=== PATIENT | male | born 1980 | race Caucasian/White ===

== ENCOUNTER → 2020-12-01 02:35 | Outpatient (CLI) | payer BC, SELFPAY ==
[2020-12-01 18:16] LABS: SARS-CoV-2 RNA PCR Positive
== END ==
PROVIDERS: PCP Family Medicine; Visit Provider Physician Assistant
DX: U07.1 COVID-19 (principal)
CPT/HCPCS: C9803; U0003; U0005

== ENCOUNTER 2020-12-29 08:57 | Outpatient (CLI) | payer BC, SELFPAY ==
--- NOTE | ~2020-12-29 | MR_ITS ---
EXAMINATION: MR brain/brain stem wo con EXAM DATE: 12/29/2020 09:34 INDICATION: G89.29 - Other chronic pain chronic pain . Generalized headaches, dizziness, nausea. TECHNIQUE: Magnetic resonance imaging (MRI) of the brain/brain stem obtained without contrast. Sagitt al T1, axial diffusion, gradient echo (T2*), T1, T2, FLAIR sequences obtained. There is no prior st udy for comparison. FINDINGS: There is moderate right sphenoid and mild right maxillary sinus mucoperiosteal thickening. Bilateral mastoid effusion. There are no areas of restricted diffusion to suggest acute infarction. There is no acute hemorrhage seen on the T2*, a hemosiderin sensitive sequence. No intraparenchymal brain mass. The ventricles are normal in size. There are no extra-axial collections. Flow voids are seen in the cerebral arteries on the T2-weighted sequences consistent with their expected patency. The orbits are unremarkable. Soft tissue is unremarkable. IMPRESSION: 1. No acute intracranial findings. 2. Right sphenoid maxillary and bilateral mastoid opacity. Reviewed, dictated and finalized at location B.
== END 2020-12-29 08:58 ==
PROVIDERS: PCP Family Medicine; Visit Provider Family Medicine
DX: G89.29 Other chronic pain (principal); R51.9 Headache, unspecified
CPT/HCPCS: 70551

== ENCOUNTER 2021-11-05 10:31 | Emergency (ER) | payer OTHER, SELFPAY ==
--- NOTE | ~2021-11-05 | XR_ITS ---
EXAMINATION: XR hand RT min 3V INDICATION: Right hand pain TECHNIQUE: Three views of the right hand are obtained. COMPARISON: 06/05/2014 FINDINGS: Bone alignment is normal. There is no fracture. 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 The soft tissues are unremarkable. IMPRESSION: 1. No acute osseous abnormality. Reviewed, dictated and finalized at location B.
[2021-11-05 10:37] VITALS: BP 118/80; PULSE 50; RESP 16; TEMP 37.2; O2SAT 99
--- NOTE | 2021-11-05 10:37 | ED.UPPEXIN ---
HPI - Extremity Injury (Upper) General Chief Complaint: Extremity Injury, Upper Stated Complaint: WC Right hand injury Time Seen by Provider: 11/05/21 11:00 Source: patient and RN notes reviewed Mode of arrival: ambulatory Limitations: no limitations History of Present Illness MD complaint: injury to: right and hand Related Data Allergies Allergy/AdvReac Type Severity Reaction Status Date / Time methylprednisolone Allergy Unknown Flushing Verified 01/13/21 11:31 cephalexin Allergy Anaphylaxis Verified 11/05/21 10:47 Review of Systems Review of Systems: CONSTITUTIONAL: Denies malaise, chills, sweats, or fever. SKIN: Denies rash or itching, open skin, laceration, abrasion, redness, warmth, swelling. MUSCULOSKELETAL: Reports left knee pain NEUROLOGIC: Denies numbness, weakness All systems reviewed & are unremarkable except as noted in HPI and below PMFSH Past Medical History Medical History Hyperlipidemia Thyroid disease Surgical History Surgical History History of spinal fusion Family History Family History Mother Family history of hypothyroidism Father Family history of hypothyroidism Family history of diabetes mellitus in first degree relative Sibling Family history of hypothyroidism Social History Social History Smoking status: Current every day smoker Tobacco type: cigarettes and e-cigarettes/vaping Second hand tobacco smoke exposure: No Smoking end date: 05/01/15 Alcohol intake: current Alcohol use details: social Substance use: never Substance use type: does not use Gender identity (if verbalized by the patient): Male Sexual Orientation (if Verbalized by the Patient): Straight or Heterosexual Comments At time of signature, agree with nursing past medical, surgical, social and family history. There is no relevant family history pertinent to the presenting complaint Exam Narrative: GENERAL: Well-appearing, well-nourished, and in no acute distress. HEAD: Normocephalic EYES: PERRLA, conjunctivae clear NECK: Supple. CHEST: Speaks in full sentences. No respiratory distress. HEART: Regular rate and rhythm. Normal and equal peripheral pulses. EXTREMITIES: Right hand and digits of hand have normal strength and sensation. 5/5 strength with digit flexion, extension. Range of motion normal. No clubbing, cyanosis, or edema noted. No point tenderness. Skin intact. Normal digital cascade with flexion of fingers, median, ulnar and radial nerve intact. Normal sensation of each side of finger. Can perform 'okay' sign, 'cross over finger test of index and middle fingers' and 'thumbs up' sign. No scissoring. Normal thumb opposition. Good capillary refill and radial pulse. Distal capillary refill less than 3 seconds. SKIN: Warn, dry, intact, pink. No rash NEURO: Alert and oriented x3. PSYCH: Normal mood and affect Course Course Emergency Course: Patient is aware of diagnosis, understands and agrees to treatment plan. Anticipatory guidance given. Patient agrees to follow-up as directed and is aware of reasons to seek care at the emergency department. Portions of this record may have been created with voice recognition software Level of Care: Express Care Visit Vital Signs Vital signs: Reviewed. MDM - Extremity Injury (Upper) MDM Narrative Medical decision making narrative: Patients injury and pain is consistent with musculoskeletal etiology. No signs of neurological or vascular compromise on exam. Compartments and tissues are soft without signs of compartment syndrome. Pain is felt appropriate for further evaluation on an outpatient basis. Differential Diagnosis Differential diagnosis: Likely sprain and strain of wrist, fracture of wrist and fracture of hand Cr
--- NOTE | 2021-11-05 10:47 | PC.NURSE ---
PT DECLINED ICE FOR COMFORT
== END 2021-11-05 11:14 | disposition home or self-care (01) ==
PROVIDERS: Emergency Provider Nurse Practitioner; PCP Family Medicine
DX: S63.91XA Sprain of unspecified part of right wrist and hand, initial encounter (principal); X58.XXXA Exposure to other specified factors, initial encounter; E78.5 Hyperlipidemia, unspecified; E03.9 Hypothyroidism, unspecified; F17.210 Nicotine dependence, cigarettes, uncomplicated; F17.290 Nicotine dependence, other tobacco product, uncomplicated
CPT/HCPCS: 73130; 99213; G0463

== ENCOUNTER 2024-06-11 17:28 | Emergency (ER) | payer OTHER, SELFPAY ==
--- NOTE | ~2024-06-11 | XR_ITS ---
HISTORY: PUNCHING INJURY,3 4 MCP JOINT PAIN COMPARISON: None TECHNIQUE: 3 views of the right hand were performed. FINDINGS: No acute fracture is identified. The joint spaces are preserved. The carpal arcs are intact. Bone mineralization is unremarkable. No significant soft tissue swelling. No radiopaque foreign body is identified. IMPRESSION: No acute fracture or dislocation within the right hand, as detailed above. Reviewed, dictated and finalized at location A. TELEPHONE TRIAGE
--- OUTSIDE RECORDS SUMMARY | 2024-06-11 17:30 | XMS_ITS | Clinical Summary ---
Author Organization [facility] Address [address] [place] [id number] Care Team Providers Care Forklift Truck Operator Name Role Phone Larry Overton MD Primary Care Provider [phone] Geoffrey Frost MD Unavailable Unavailabl e Allergies Active Allergy Reactions Criticality Noted Date Comments Cephalexin Anaphylaxis High 04/10/2018 Medications levothyroxine 200 MCG tablet TK 1 T PO QD 2 01/15/2018 Active naproxen sodium 220 MG tablet Take 220 mg by mouth every 4 (four) hours as needed. Active Calcium Carb-Cholecalcif mariela (CALCIUM-VITAMIN D3) 250-125 MG-UNIT Tab Take by mouth daily. Active Active Problems Problem Noted Date Diagnosed Date Paresthesia of hand, bilateral 02/26/2019 Other muscle spasm 06/04/2018 S/P cervical spinal fusion 04/06/2018 Foraminal stenosis of cervical region 04/06/2018 Cervical disc herniation 04/06/2018 Cervical radiculopathy 02/13/2018 Family History Medical History Relation Comments Diabetes Father Heart Disease Father Thyroid Father Dementia Maternal Grandmother Diabetes Mother Thyroid Mother tia Mother Relation Status Comments Father (Age 59) resp failure d ue to cpap noncompliance Maternal Grandmother Mother Social History Tobacco Use Types Packs/Day Years Used Date Smoking Tobacco: Every Day Electronic Cigarettes Smokeless Tobacco: Former Chew Quit: 03/29/2013 Tobacco Cessation:Ready to Q uit: Yes Comments:no nicotine; stopped cigs 2014- was 1.5 ppd for 20 years Alcohol Use Standard Drinks/Week Comments Yes 8.3 (1 standard drink = 0.6 oz p ure alcohol) Sex and Gender Information Value Date Recorded Sex Assigned at Not on file Legal Sex Male 1:46 PM CDT Gender Identity Not on file Sexual Orientation Not on file Last Filed Vital Signs Vital Sign Reading Time Taken Comments Blood Pressure 110/70 06/03/2019 10:06 AM PIPE LINE REPAIRER Pulse 56 06/03/2019 10:06 AM PIPE LINE REPAIRER Temperature 36.7 C (98 F) 04/11/2019 11:45 AM PIPE LINE REPAIRER Respiratory Rate 18 04/11/2019 11:4 5 AM PIPE LINE REPAIRER Oxygen Saturation 99% 06/03/2019 10: 06 AM PIPE LINE REPAIRER Inhaled Oxygen Concentration - - Weight 103.6 kg (228 lb 6.4 oz) 020 10:06 AM PIPE LINE REPAIRER Height 193 cm (6' 4 ) 06/03/2019 10:06 AM PIPE LINE REPAIRER Body Mass Index 27.8 06/03/2019 10:06 AM PIPE LINE REPAIRER Plan of Treatment Health Maintenance Due Date Last Done Comments Annual Physical 01/11/1983 Pneumococcal Vaccine: Pediat rics (0 to 5 Years) and At-Risk Patients (6 to 64 Years) (1 of 2 - PCV) 01/11/1986 Hepatitis C 01/11/1998 DTaP, Tdap and Td Vaccines ( 1 - Tdap) 01/11/1999 Hepatitis B Vaccines (1 of 3 - 19+ 3-dose series) 01/11/1999 COVID-19 Vaccine (2023-2 5 season) 2023 Influenza Adult (#1) 2024 HPV Vaccines Aged Out No longer eligi ble based on patient's age to complete this topic Meningococcal B Vaccine Aged Out No l onger eligible based on patient's age to complete this topic Meningococcal Vaccine Aged Out No gabriella elais eligible based on patient's age to complete this topic RSV Immunizations Under 20 Months Aged Out No longer eligible based on patient's age to complete this topic Medical Devices Implanted Type Area Casing Material Weigher Device Identifier Shelf Expiration Date Model / Serial / Lot Medtronic Dbf Implanted:Qty : 1 on 04/05/2018 by Geoffrey Frost MD at [facility] N/A: Spine Cervical [id number] 10/17/2018 [id number] / [id number] / [id number] Shayla Nm Implant Implanted:Qty : 1 on 04/05/2018 by Geoffrey Frost MD at [facility] N/A: Spine Cervical SEASPINE 12/06/2021 [id number] / / [id number] Shayla Nm Implant Implanted:Qty : 1 on 04/05/2018 by Geoffrey Frost MD at [facility] N/A: Spine Cervical SEASPINE 12/06/2021 [id number] / / [id number] Implanted:Qty : 1 on 04/05/2018 by Geoffrey Frost MD at [facility] N/A: Spine Cervical JESSE SPINE - DIV JESSE CHUCK [id number] / / Screws Implanted:Qty : 6 on 04/05/2018 by Geoffrey Frost MD at [facility] N/A: Spine Cervical J[employer] - DIV JESSE CHUCK [id number] / / Explanted Type Area Casing Material Weigher Device Identifier Shelf Expiration Date Model / Serial / Lot Distration Pin 12mm - [id number] Explanted:Qty: 1 on 04/05/2018 at [facility] N/A: Spine Cervical [employer] DP-12-TB / / Distration Pin 12mm - [id number] Explanted:Qty: 1 on 04/05/2018 at [facility] N/A: Spine Cervical [employer] DP-12-TB / / Insurance Advance Directives * Full Code (Latest Code Status on File) Date Activated Date Inactivated Comments 04/05/2018 8:04 PM 04/06/2018 5:31 PM Care Teams Forklift Truck Operator Relationship Specialty Start Date End Date Larry Overton MD [address] [place] [address] PCP - General FAMILY PRACTICE 02/13/18 Geoffrey Frost MD [address] [place] [address] Surgeon NEUROLOGICAL SURGERY 03/29/18
--- OUTSIDE RECORDS SUMMARY | 2024-06-11 17:30 | XMS_ITS | Continuity of Care Document ---
Author Name [facility] Organization [facility] Care Team Providers Care Forest Fire Equipment Operator Name Role Phone [facility] Unavailable Unavailable Problems Combined list of problems from Department of Defense and Veterans Affairs facilities. It does not include entries that were removed or entered in error. Problem Status Onset Date Problem Type Date of Resolution Comments Source otitis media Inactive Condition DoD visit for: services physical accession Inactive Condition DoD labyrinthitis Inactive Condition DoD patellofemoral syndrome Active Condition bilateral symptoms. There is no indication this is related to a previous running incident in the past, LBP is of incedious onset and again there is no indication it was caused by an event at work. These pain syndromes are related to a conditioning , deconditioning , repeted cycle issue. DoD Patient Education - Action Plan Inactive Condition DoD joint pain, localized in the knee Active Condition DoD lower back pain Active Condition DoD Need For Vaccination Against Influenza Inactive Condition DoD Need For Vaccination Hepatitis A Active Condition DoD visit for: services physical Active Condition DoD Allergies, Adverse Reactions, Alerts Combined list of allergies from Department of Defense and Veterans Affairs facilities. It does not include entries that were removed or entered in error. Substance Category Reaction Severity Reaction type Status Date Reported Comments Source No Known Allergies Drug allergy (disorder) active 08/06/2007 Delia Renae [place] Immunizations Combined list of available immunizations from the Department of Defense and Veterans Affairs facilities. Immunization Series Date Given Administered By Site Reaction Lot Number CVX Code Drug Embedded Case Manager Status Comments Source anthrax vaccine 5 2007 [id number] [employer] [place] (MIP) complet ed anthrax vaccine DoD influenza virus vaccine, split virus (incl. purified surface antigen)-reti red CODE 1 2007 UNK 15 Unknown (UNK) comple t ed influenza virus vaccine, split virus (incl. purified surface antigen)- retired CODE DoD vaccinia (smallpox) vaccine 1 2007 UNK 75 Unknown (UNK) Not Given vaccinia (smallpox ) vaccine DoD typhoid Vi capsular polysaccharid e vaccine 1 2007 UNK 101 Unknown (UNK) comple t ed typhoid Vi capsular polysacch aride vaccine DoD hepatitis A and hepatitis B vaccine 3 2007 [id number] Unknown (UNK) complet ed hepatitis A and hepatitis B vaccine DoD anthrax vaccine 4 2007 UNK 24 [facility] complet ed anthrax vaccine DoD influenza virus vaccine, split virus (incl. purified surface antigen)-reti red CODE 1 2007 UNK 15 Merieux (IM) complet ed influenza virus vaccine, split virus (incl. purified surface antigen)- retired CODE DoD hepatitis A and hepatitis B vaccine 2 2007 [id number] SmithKline (SKB) complet ed hepatitis A and hepatitis B vaccine DoD anthrax vaccine 3 2003 [id number] [facility] complet ed anthrax vaccine DoD hepatitis B vaccine, adult dosage 1 2003 [id number] [employer]line ([facility]) complet ed hepatitis B vaccine, adult dosage DoD hepatitis A vaccine, adult dosage 1 2003 [id number] [employer] ([facility]) complet ed hepatitis A vaccine, adult dosage DoD anthrax vaccine 2 2002 [id number] [facility] complet ed anthrax vaccine DoD anthrax vaccine 1 2002 [id number] [facility] complet ed anthrax vaccine DoD tetanus and diphtheria toxoids, adsorbed, preservative free, for adult use (2 Lf of tetanus toxoid and 2 Lf of diphtheria toxoid) 0 2000 UNK 09 Unknown (UNK) comple t ed tetanus and diphtheri a toxoids, adsorbed, preservat lai free, for adult use (2 Lf of tetanus toxoid and 2 Lf of diphtheri a toxoid) DoD poliovirus vaccine, inactivated 0 2000 UNK 10 Unknown (UNK) comple t ed polioviru s vaccine, inactivat ed DoD meningococcal polysaccharid e vaccine (MPSV4) 0 2000 UNK 32 Unknown (UNK) comple t ed meningoco ccal polysacch aride vaccine (MPSV4) DoD Encounters Combined list of: 1) Encounters from Department of Veterans Affairs facilities going backup to the last 18 months, not all [place] inpatient encounters are included; 2) Encounters from the Department of Defense facilities going backup to 280 months. Location Location Details Encounter Type Encounter Number Reason For Visit Attending Provider ADM Date DC Date Status Disposition Source [place] [place] OUTPATIENT [id number] PREDEPL OYMENT MEDICAL SCREENI NG ASSESSM ENT MARCELLE TEJADA 06/27 Released w/o Limitations [place] [facility] [place] [facility] [place] OUTPATIENT [id number] SRP lbp, bilater al knee pain SANDY NICHOLSON H 06/27 Released w/o Limitations [place] [facility] [place] [facility] [place] OUTPATIENT [id number] LBP Claudio Knee pain FLOR CAMARILLOAH Katherine 06/28 Released w/o Limitations [place] [facility] [place]) [place] [facility] [place] OUTPATIENT [id number] SRP f/u SANDY NICHOLSON H 06/28 Released w/o Limitations [place] [facility] [place] GIAN [facility] OUTPATIENT [id number] Focus Exam {1710, mob} JANUARY MERCADO S 07/30 Released w/o Limitations GIAN Gold([facility]) [facility] OUTPATIENT [id number] 12/06 Released w/o Limitations [facility] OUTPATIENT [id number] 05/05 Sick at Home[facility]Qu[facility] s [facility] OUTPATIENT [id number] 05/12 Released with Work/Duty Limitations Theater Facilit y [facility] Outpatient Encounter [id number] 06/10 [facility] Procedures Combined list of: 1) Procedures from Department of [facility] facilities going back up to thelast 18 months, not all [place] non-surgical procedures are included; 2) All procedures from the Department of Defense facilities. Procedure Procedure Type Code Date Too Rosas charu Clinical Social Work Individual Outpatient Counseling 30 Minutes Clinical Social Work Individual Outpatient Counseling 30 Minutes [id number] 06/23/2008 PAMELA SAINI [facility] Immunization Administration By Injection, Each Additional Vaccine 06/27/2007 MARCELLE TEJADA [facility] Influenza Split Virus Vaccine 0.5mL Dosage Intramuscular 06/27/2007 MARCELLE TEJADA [facility] Immunization Administration By Injection, One Vaccine Immunization Administration By Injection, One Vaccine [id number] 06/27/2007 MARCELLE TEJADA [facility] Hepatitis A And Hepatitis B (Intramuscular Use) Adult Dosage Hepatitis A And Hepatitis B (Intramuscular Use) Adult Dosage [id number] 06/27/2007 MARCELLE TEJADA [facility] Venipuncture Venipuncture [id number] 06/27/2007 MARCELLE TEJADA [facility] IMMUNIZATION ADMINISTRATION (INCLUDES PERCUTANEOUS, INTRADERMAL, SUBCUTANEOUS, OR INTRAMUSCULAR INJECTIONS); EACH ADDITIONAL VACCINE (SINGLE OR COMBINATION VACCINE/TOXOID) 06/27/2007 [facility] SCREENING TEST OF VISUAL ACUITY, QUANTITATIVE, BILATERAL 06/24/2008 [facility] INDIVIDUAL PSYCHOTHERAPY, INSIGHT ORIENTED, BEHAVIOR MODIFYING AND/OR SUPPORTIVE, IN AN OFFICE OR OUTPATIENT FACILITY, APPROXIMATELY 20 TO 30 MINUTES ACRE-AU-HCHX WITH THE PATIENT 06/23/2008 [facility] IMMUNIZATION ADMINISTRATION (INCLUDES PERCUTANEOUS, INTRADERMAL, SUBCUTANEOUS, OR INTRAMUSCULAR INJECTIONS); EACH ADDITIONAL VACCINE (SINGLE OR COMBINATION VACCINE/TOXOID) 08/06/2007 [facility] SKIN TEST; TUBERCULOSIS, INTRADERMAL 08/06/2007 [facility] THERAPEUTIC PROCEDURE, 1 OR MORE AREAS, EACH 15 MINUTES; THERAPEUTIC EXERCISES TO DEVELOP STRENGTH AND ENDURANCE, RANGE OF MOTION AND FLEXIBILITY 05/13/2003 DoD APPLICATION OF A MODALITY TO 1 OR MORE AREAS; HOT OR COLD PACKS 05/09/2003 DoD APPLICATION OF A MODALITY TO 1 OR MORE AREAS; HOT OR COLD PACKS 05/07/2003 DoD APPLICATION OF A MODALITY TO 1 OR MORE AREAS; HOT OR COLD PACKS 05/05/2003 DoD THERAPEUTIC PROCEDURE, 1 OR MORE AREAS, EACH 15 MINUTES; THERAPEUTIC EXERCISES TO DEVELOP STRENGTH AND ENDURANCE, RANGE OF MOTION AND FLEXIBILITY 04/30/2003 DoD THERAPEUTIC PROCEDURE, 1 OR MORE AREAS, EACH 15 MINUTES; THERAPEUTIC EXERCISES TO DEVELOP STRENGTH AND ENDURANCE, RANGE OF MOTION AND FLEXIBILITY 04/28/2003 DoD THERAPEUTIC PROCEDURE, 1 OR MORE AREAS, EACH 15 MINUTES; THERAPEUTIC EXERCISES TO DEVELOP STRENGTH AND ENDURANCE, RANGE OF MOTION AND FLEXIBILITY 04/17/2003 [facility] THERAPEUTIC PROCEDURE, 1 OR MORE AREAS, EACH 15 MINUTES; THERAPEUTIC EXERCISES TO DEVELOP STRENGTH AND ENDURANCE, RANGE OF MOTION AND FLEXIBILITY 04/15/2003 [facility] PHYSICAL THERAPY EVALUATION 04/08/2003 DoD NONINVASIVE EAR OR PULSE OXIMETRY FOR OXYGEN SATURATION; SINGLE DETERMINATION 06/23/2002 DoD Social History Combined list of available smoking, tobacco, and other social history from Department of Defense and Veterans Affairs facilities. Social History Type Response Date Comment Sour e This section is an empty social history section. DoD
--- OUTSIDE RECORDS SUMMARY | 2024-06-11 17:31 | XMS_ITS | Encounter Summary ---
Author Organization [facility] Address [facility] [place] [address] Care Team Providers Care Director Of Primary Care Name Role Phone Larry Overton MD Primary Care Provider [phone] Geoffrey Frost MD Unavailable Unavailabl e Encounter Details Date Type Department Care Team (Late st Contact Info) Description 04/10/2019 Hospital Orders Only [facility] Interventional Radiology [address] [address] Uri Montaño MD [address] [place] [address] Social History Tobacco Use Types Packs/Day Years Used Date Smoking Tobacco: Every Day Electronic Cigarettes Smokeless Tobacco: Former Chew Quit: 03/29/2013 Comments:no nicotine; stoppe d cigs 2014- was 1.5 ppd for 20 years Alcohol Use Standard Drinks/Week Comments Yes 8.3 (1 standard drink = 0.6 oz p ure alcohol) Sex and Gender Information Value Date Recorded Sex Assigned at Not on file Legal Sex Male 1:46 PM CDT Gender Identity Not on file Sexual Orientation Not on file documented as of this encounter Plan of Treatment Not on file documented as of this encounter Visit Diagnoses Not on filedocumented in this encounter Care Teams Director Of Primary Care Relationship Specialty Start Date End Date Larry Overton MD [address] [place] [address] PCP - General FAMILY PRACTICE 02/13/18 Geoffrey Frost MD [address] [place] [address] Surgeon NEUROLOGICAL SURGERY 03/29/18 documented as of this encounter
--- OUTSIDE RECORDS SUMMARY | 2024-06-11 17:31 | XMS_ITS | Clinical Summary ---
Author Organization [facility] Address [address] [place] [address] Care Team Providers Care Crew Director Name Role Phone Larry Overton MD Primary Care Provider [phone] Allergies Active Allergy Reactions Criticality Noted Date Comments Cephalexin Anaphylaxis High 11/13/2018 Medications levothyroxine 200 mcg tabletIndication s:patient has not taken in a while Take 200 mcg by mouth daily stacker operator. Active Calcium-Cholecal ciferol, D3, (OSCAL) 250-125 mg-unit per tablet Take by mouth daily. Active GABAPENTIN ORAL Take by mouth. Active Active Problems No known active problems Social History Tobacco Use Types Packs/Day Years Used Date Smoking Tobacco: Never Smokeless Tobacco: Never Alcohol Use Standard Drinks/Week Comments Yes 0 (1 standard drink = 0.6 oz pur e alcohol) Sex and Gender Information Value Date Recorded Sex Assigned at Not on file Legal Sex Male 12:06 PM CDT Gender Identity Not on file Sexual Orientation Not on file Last Filed Vital Signs Vital Sign Reading Time Taken Comments Blood Pressure 115/68 04/12/2019 3:22 PM AUDIT CLERKS SUPERVISOR Pulse 59 04/12/2019 3:22 PM AUDIT CLERKS SUPERVISOR Temperature 36.4 C (97.6 F) 04/12/2019 1:36 PM AUDIT CLERKS SUPERVISOR Respiratory Rate 20 04/12/2019 3:22 PM AUDIT CLERKS SUPERVISOR Oxygen Saturation 100% 04/12/2019 3:22 PM AUDIT CLERKS SUPERVISOR Inhaled Oxygen Concentration - - Weight 102.1 kg (225 lb) 04/12/2019 1:36 PM AUDIT CLERKS SUPERVISOR Height 193 cm (6' 4 ) 04/12/2019 1:36 PM AUDIT CLERKS SUPERVISOR Body Mass Index 27.39 04/12/2019 1:36 PM AUDIT CLERKS SUPERVISOR Plan of Treatment Health Maintenance Due Date Last Done Comments DTAP/TDAP/TD VACCINES (1 - Tdap) 01/11/1999 HEPATITIS B VACCINES (1 of 3 - 19+ 3-dose series) 01/11/1999 INFLUENZA VACCINE (#1) 2023 HPV VACCINES Aged Out No longer eligi ble based on patient's age to complete this topic PNEUMOCOCCAL VACCINE 0-64 YEARS Aged Out No longer eligible based on patient's age to complete this topic Care Teams Crew Director Relationship Specialty Start Date End Date Larry Overton MD [address] [facility] [address] [place] [id number] PCP - General Family Practice 11/13/18
--- OUTSIDE RECORDS SUMMARY | 2024-06-11 17:34 | XMS_ITS | Continuity of Care Document ---
Author Name [facility] Organization [facility] Care Team Providers Care Retail Loss Prevention Specialist Name Role Phone [facility] Unavailable Unavailable Problems Combined list of problems [...] Drug allergy (disorder) active 08/06/2007 Delia Renae [place] Immunizations Combined list of available immunizations from the Department of Defense and Veterans Affairs facilities. Immunization Series Date Given Administered By Site Reaction Lot Number CVX Code Drug Intelligence Specialist Status Comments Source anthrax vaccine 5 2007 [id number] [employer] [place] ([facility]) complet ed anthrax vaccine DoD influenza [...] anthrax vaccine 4 2007 [id number] 24 [facility] complet ed anthrax vaccine DoD influenza virus vaccine, split virus (incl. purified surface antigen)-reti red CODE 1 2007 UNK 15 Merieux (IM) complet ed influenza virus vaccine, split virus (incl. purified surface antigen)- retired CODE DoD hepatitis A and hepatitis B vaccine 2 2007 [id number] [employer] (SKB) complet ed hepatitis A and hepatitis B vaccine DoD anthrax vaccine 3 2003 [id number] [facility] complet ed anthrax vaccine DoD hepatitis B vaccine, adult dosage 1 2003 [id number] [employer] ([facility]) complet ed hepatitis B vaccine, adult dosage DoD hepatitis A vaccine, adult dosage 1 2003 [id number] [employer] ([facility]) complet ed hepatitis A vaccine, adult dosage DoD anthrax vaccine 2 2002 [id number] [facility] ([facility] complet ed anthrax vaccine DoD anthrax vaccine 1 2002 [id number] [facility] ([facility] complet ed anthrax vaccine DoD tetanus [...] to the last 18 months, not all [place] inpatient encounters are included; 2) Encounters from the Department of Defense facilities going backup to 280 months. Location Location Details Encounter Type Encounter Number Reason For Visit Attending Provider ADM Date DC Date Status Disposition [place] OUTPATIENT [id number] PREDEPL OYMENT MEDICAL SCREENI NG ASSESSM ENT MARCELLE TEJADA 06/27 Released w/o Limitations [place]) OUTPATIENT [id number] SRP lbp, bilater al knee pain SANDY NICHOLSON H 06/27 Released w/o Limitations [place]) [place] OUTPATIENT [id number] LBP Claudio Knee pain FLOR CAMARILLOAH Katherine 06/28 Released w/o Limitations [place]) [place] OUTPATIENT [id number] SRP f/u SANDY NICHOLSON H 06/28 Released w/o Limitations [place] GIAN Gold([facility]) OUTPATIENT [id number] Focus Exam {1710, mob} JANUARY MERCADO S 07/30 Released w/o Limitations GIAN Gold([facility]) [facility] OUTPATIENT [id number] 12/06 Released w/o Limitations [facility] OUTPATIENT [id number] 05/05 [facility] OUTPATIENT [id number] 05/12 Released with Work/Duty Limitations [facility] Outpatient Encounter [id number] 06/10 [facility] Procedures Combined list of: 1) Procedures from Department of [facility] facilities going back up to thelast 18 months, not all [place] non-surgical procedures are included; 2) All procedures from the Department of Defense facilities. Procedure Procedure Type Code Date Too Rosas charu Clinical Social Work Individual Outpatient Counseling 30 Minutes Clinical Social Work Individual Outpatient Counseling 30 Minutes [id number] 06/23/2008 PAMELA SAINI [facility] Immunization Administration By Injection, Each Additional Vaccine 06/27/2007 MARCELLE TEJADA [facility] Influenza Split Virus Vaccine 0.5mL Dosage Intramuscular 06/27/2007 MARCELLE TEJADA [facility] Immunization Administration By Injection, One Vaccine Immunization Administration By Injection, One Vaccine 68852 06/27/2007 MARCELLE TEJADA [facility] Hepatitis A And Hepatitis B (Intramuscular Use) Adult Dosage Hepatitis A And Hepatitis B (Intramuscular Use) Adult Dosage 67270 06/27/2007 MARCELLE TEJADA [facility] Venipuncture Venipuncture [id number] 06/27/2007 MARCELLE TEJADA [facility] IMMUNIZATION ADMINISTRATION (INCLUDES PERCUTANEOUS, INTRADERMAL, SUBCUTANEOUS, OR INTRAMUSCULAR INJECTIONS); EACH ADDITIONAL VACCINE (SINGLE OR COMBINATION VACCINE/TOXOID) 06/27/2007 [facility] SCREENING TEST OF VISUAL ACUITY, QUANTITATIVE, BILATERAL 06/24/2008 [facility] INDIVIDUAL PSYCHOTHERAPY, INSIGHT ORIENTED, BEHAVIOR MODIFYING AND/OR SUPPORTIVE, IN AN OFFICE OR OUTPATIENT FACILITY, APPROXIMATELY 20 TO 30 MINUTES [id number] WITH THE PATIENT 06/23/2008 [facility] IMMUNIZATION ADMINISTRATION (INCLUDES PERCUTANEOUS, INTRADERMAL, SUBCUTANEOUS, OR INTRAMUSCULAR INJECTIONS); EACH ADDITIONAL VACCINE (SINGLE OR COMBINATION VACCINE/TOXOID) 08/06/2007 [facility] SKIN TEST; TUBERCULOSIS, INTRADERMAL 08/06/2007 [facility] THERAPEUTIC PROCEDURE, 1 OR MORE AREAS, [...] ENDURANCE, RANGE OF MOTION AND FLEXIBILITY 04/17/2003 [facility] THERAPEUTIC PROCEDURE, 1 OR MORE AREAS, EACH 15 MINUTES; THERAPEUTIC EXERCISES TO DEVELOP STRENGTH AND ENDURANCE, RANGE OF MOTION AND FLEXIBILITY 04/15/2003 [facility] PHYSICAL THERAPY EVALUATION 04/08/2003 DoD NONINVASIVE EAR OR PULSE OXIMETRY FOR OXYGEN SATURATION; SINGLE DETERMINATION 06/23/2002 DoD Social History Combined list of available smoking, tobacco, and other social history from Department of Defense and Veterans Affairs facilities. Social History Type Response Date Comment Sour e This section is an empty social history section. DoD
--- NOTE | 2024-06-11 17:38 | ED.UPPEXIN ---
HPI - Extremity Injury (Upper) General Stated Complaint: Right Hand Injury Time Seen by Provider: 06/11/24 18:04 Source: patient and RN notes reviewed Mode of arrival: ambulatory Limitations: no limitations History of Present Illness HPI narrative: 44-year-old male presents with concern of for right hand pain. Reports last night he punched a dresser and has since had pain at the base of the 3rd and 4th digits. He reports bruising. Reports some stiffness with bending. Denies any decreased strength, sensation, range of motion Related Data Allergies Allergy/AdvReac Type Severity Reaction Status Date / Time methylprednisolone Allergy Unknown Flushing Verified 12/22/22 09:00 cephalexin Allergy Anaphylaxis Verified 12/22/22 09:00 Review of Systems Review of Systems: CONSTITUTIONAL: Denies malaise, chills, sweats, or fever. SKIN: Denies rash or itching, open skin, laceration, abrasion, redness, warmth MUSCULOSKELETAL: Reports right hand pain and swelling NEUROLOGIC: Denies numbness, weakness All systems reviewed & are unremarkable except as noted in HPI and below PMFSH Past Medical History Medical History Hyperlipidemia Thyroid disease Surgical History Surgical History History of spinal fusion Family History Family History Mother Family history of hypothyroidism Father Family history of hypothyroidism Family history of diabetes mellitus in first degree relative Sibling Family history of hypothyroidism Social History Social History Smoking status: Former smoker Tobacco type: cigarettes and e-cigarettes/vaping Second hand tobacco smoke exposure: No Smoking end date: 05/01/15 Alcohol intake: current Alcohol use details: social Substance use: never Substance use type: does not use Living arrangements: with family Occupation/Education: occupation Gender identity (if verbalized by the patient): Male Sexual Orientation (if Verbalized by the Patient): Straight or Heterosexual Comments At time of signature, agree with nursing past medical, surgical, social and family history. There is no relevant family history pertinent to the presenting complaint Exam Narrative: GENERAL: Well-appearing, well-nourished, and in no acute distress. HEAD: Normocephalic EYES: PERRLA, conjunctivae clear NECK: Supple. CHEST: Speaks in full sentences. No respiratory distress. HEART: Regular rate and rhythm. Normal and equal peripheral pulses. EXTREMITIES: Right hand and digits of hand have grossly normal strength and sensation. 5/5 strength with digit flexion, extension. Range of motion grossly normal. No clubbing, cyanosis. Edema and ecchymosis noted to the adhesive the 34th digits and into the hand slightly. No tenderness. Skin intact. Normal digital cascade with flexion of fingers, median, ulnar and radial nerve intact. Normal sensation of each side of finger. Can perform 'okay' sign, 'cross over finger test of index and middle fingers' and 'thumbs up' sign. No scissoring. Normal thumb opposition. Good capillary refill and radial pulse. Distal capillary refill less than 3 seconds. Patient is right hand dominant SKIN: Warn, dry, intact, pink. No rash NEURO: Alert and oriented x3. PSYCH: Normal mood and affect Course Course Emergency Course: Patient is aware of diagnosis, understands and agrees to treatment plan. Anticipatory guidance given. Patient agrees to follow-up as directed and is aware of reasons to seek care at the emergency department. Portions of this record may have been created with voice recognition software Level of Care: Express Care Visit Vital Signs Vital signs: Reviewed. MDM - Extremity Injury (Upper) MDM Narrative Medical decision making narrative: Patients injury and pain is consistent with musculoskeletal etiology. No signs of neurological or vascular compromise on exam. Compartments and tissues are soft without signs of compartment syndrome. Pain is felt appropriate for further evaluation on an outpatient basis. Imaging Data My impression: Images reviewed, interpreted by radiologist, agree, see report. Radiologist's impression: HISTORY: PUNCHING INJURY,3 4 MCP JOINT PAIN COMPARISON: None TECHNIQUE: 3 views of the right hand were performed. FINDINGS: No acute fracture is identified. The joint spaces are preserved. The carpal arcs are intact. Bone mineralization is unremarkable. No significant soft tissue swelling. No radiopaque foreign body is identified. IMPRESSION: No acute fracture or dislocation within the right hand, as detailed above. Critical Care Time Critical Care Time Critical Care Time: No Discharge Plan Discharge Clinical Impression: Contusion of hand, right Patient Disposition: Home, Self-Care Condition: Stable Instructions: Contusion in Adults (ED) Additional Instructions: Avoid activities that cause pain until the pain subsides. Ice to the area 20-30 minutes 4-6 times a day Elevate above heart Elastic wrap as needed for comfort for the next 5-7 days Tylenol for lesser pain Ibuprofen regularly for the next 2-3 days for the inflammation Follow up with your primary care provider if the condition is not improving within 1 week. If the condition worsens with numbness, tingling, decrease sensation with weakness seek treatment in the emergency room immediately. Patient Language: Yakut Prescriptions: No Action levothyroxine 100 mcg tablet 100 mcg PO DAILY Qty: 30 3RF Follow-up/Referrals: Larry Overton MD [Primary Care Provider] - Time of Disposition: 18:08
[2024-06-11 17:43] VITALS: BP 119/75; PULSE 62; RESP 16; TEMP 36.3; O2SAT 100
== END 2024-06-11 18:16 | disposition home or self-care (01) ==
PROVIDERS: Emergency Provider Nurse Practitioner; PCP Family Medicine
DX: S60.221A Contusion of right hand, initial encounter (principal); W22.8XXA Striking against or struck by other objects, initial encounter; E78.5 Hyperlipidemia, unspecified; Z87.891 Personal history of nicotine dependence
CPT/HCPCS: 73130; 99213; G0463